=== PATIENT | female | born 1955 | race Caucasian/White ===

== ENCOUNTER 2018-11-29 17:48 | Emergency (ER) | payer OTHER, MEDICAID ==
[~2018-11-29] VITALS: Ht 172.7 cm; Wt 99.8 kg
[2018-11-29 17:59] VITALS: Ht 172.7 cm; Wt 99.8 kg
[2018-11-29 18:37] LABS: BASOPHIL % 0.5 % (0-2); PLATELET COUNT 183 x10^3mcL (130-400); RED CELL DISTRIBUTION WIDTH 13.1 % (11.5-14.5)
[2018-11-29 18:42] LABS: CALCIUM 9.2 mg/dL (8.5-10.1); CARBON DIOXIDE 29.8 mmol/L (21-32); CHLORIDE SERUM 103 mmol/L (98-107); CREATININE SERUM 1.6 mg/dL (0.6-1.0); GFR1 35 mL/min; GLUCOSE SERUM 180 mg/dL (74-106); POTASSIUM SERUM 4.2 mmol/L (3.5-5.1); SODIUM SERUM 140 mmol/L (136-145)
[2018-11-29 18:46] LABS: ALBUMIN 2.8 g/dL (3.4-5.0); ALKALINE PHOSPHATASE 121 U/L (46-116); ALT/SGPT 8 U/L (14-59); AST/SGOT 14 U/L (15-37); BILIRUBIN TOTAL 0.19 mg/dL (0.20-1.00); TOTAL PROTEIN, SERUM 6.7 g/dL (6.4-8.2)
[2018-11-29 19:21] LABS: microscopic required? YES; urine erythrocyte TRACE (NEGATIVE)
[2018-11-29 19:28] LABS: AMPHETAMINE QUAL UR NONE DETECTED (See below)
--- NOTE | 2018-11-30 07:58 | NUR ---
[facility] received pacekt via fax at [phone]. Packet faxed to Fany Griffin, [facility], both facilities state possible D/Cs today. No beds available at [facility], [facility], [facility]. Will continue to look for placement. Will contact with updates.
--- NOTE | 2018-11-30 09:12 | NUR ---
Contacted The following facilities: [facility]: S/W Balbir, after discussing case with him, states pt is does not meet their admission criteria as pt has hx of mental disability. Unable to accept pt. [facility]: S/W Alicja, states they may be able to accept pt, will review packet and get back to us. Will continue to look for placement. will contact with any update.
--- NOTE | 2018-11-30 09:25 | NUR ---
Contacted the following facilities: [facility]: Made Multiple attempts, no answer, unable to leave message, will continue to contact. [facility]: States they will review packet and f/u if they can receive pt.
--- NOTE | 2018-11-30 12:55 | NUR ---
SW was informed by ED about this patient [id number] hold status and accepting facility for inpatient services is [facility]. Sw met Christina Vásquez [facility] administrator social welfare who stated the pt will be moving to her facility after d/c. Sw escorted them to see the patient. D/c plan for today after 3pm. [facility] - Christina Vásquez [facility] Media Coordinator was contacted and made aware of plan. DANIEL Rivas, investment strategist
[2018-11-30 14:03] VITALS: BP 167/98
== END 2018-11-30 14:03 | disposition short-term general hospital (02) ==
LOC: ED 17:48
PROVIDERS: Emergency Medicine
DX: R45.6 Violent behavior (principal); K21.9 Gastro-esophageal reflux disease without esophagitis; E78.5 Hyperlipidemia, unspecified; E11.22 Type 2 diabetes mellitus with diabetic chronic kidney disease; I12.9 Hypertensive chronic kidney disease with stage 1 through stage 4 chronic kidney disease, or unspecified chronic kidney disease; N18.9 Chronic kidney disease, unspecified; M19.90 Unspecified osteoarthritis, unspecified site
CPT/HCPCS: G0480; J1885; J2060; J7030; Q0092